=== PATIENT | female | born 1985 | race Hispanic/Latino ===

== ENCOUNTER 2024-01-02 14:55 | Emergency (ER) | payer SELFPAY ==
[2024-01-02] MEDS ORDERED: Acetaminophen 500 MG TAB ONE (15:48)
[2024-01-02 16:14] LABS: Bilirubin Neg (Negative); Blood, Urine 50 (Negative); Clarity Cloudy (Clear); Glucose, Urine (Dipstick) 250 mg/dL (Negative); Ketone, Urine 5 mg/dL (Negative); Leukocyte 500 (Negative); Nitrite Positive (Negative); Protein, Urine (Dipstick) 30 mg/dl (Neg-Trace); Specific Gravity, Urine 1.025 (1.005-1.030); Urobilinogen Normal mg/dL (Less than 2)
[2024-01-02 16:26] LABS: CAUTI Indications for Culture Pelvic or flank pain; WBC/HPF 21-50 HPF (0-3)
[2024-01-02 16:34] LABS: Bacteria/HPF 4+ HPF (None Seen)
[2024-01-02 16:37] LABS: Mucous/LPF 2+ LPF (<2+)
[2024-01-02 16:38] LABS: Calcium Oxalate Crystals 1+ HPF (None Seen)
[2024-01-02] MEDS ORDERED: cefTRIAXone (ROCEPHIN) 1 GM VIAL ONE (16:40)
[2024-01-02 16:41] LABS: Urine Culture Reflex Yes Yes
[2024-01-02] MEDS ORDERED: Sterile Water 10 ML ONE (16:41)
== END 2024-01-02 17:19 | disposition home or self-care (01) ==
LOC: CSHERS 14:55
DX: O23.01 Infections of kidney in pregnancy, first trimester (principal); N12 Tubulo-interstitial nephritis, not specified as acute or chronic; Z3A.13 13 weeks gestation of pregnancy
CPT/HCPCS: 76801; 81001; 87077; 87086; 96372; J0696